=== PATIENT | female | born 1930 | race Caucasian/White ===

== ENCOUNTER 2019-04-25 14:56 | Inpatient (IN) ==
[2019-04-25] MEDS ORDERED: ONDANSETRON 4 MG/2 ML VIAL ONE (15:13)
[2019-04-25] MEDS ORDERED: fentaNYL 100 MCG/2 ML VIAL ONE (15:14)
[2019-04-25] MEDS ORDERED: fentaNYL 100 MCG/2 ML VIAL IV STA (15:19)
[2019-04-25] MEDS ORDERED: ONDANSETRON 4 MG/2 ML VIAL IV STA (15:19)
[2019-04-25 16:00] LABS: Basophils # 0.1 10*3/uL (0.0-0.2); Basophils % 0.8 % (0.0-0.8); Eosinophils # 0.1 10*3/uL (0.0-0.87); Eosinophils % 0.7 % (0.00-10.9); Hematocrit 37.8 VOL% (35.7-47.0); Hemoglobin 12.6 GM/DL (12.0-16.0); Immature Granulocytes Absolute 0.17 #; Lymphocytes # 1.1 10*3/uL (1.4-4.0); Lymphocytes % 6.2 % (21.3-54.2); Mean Corpuscular HGB Conc 33.3 GM/DL (32-36); Mean Corpuscular Volume 90.6 FL (87-102); Mean Platelet Volume 11.1 FL (9.6-12.0); Monocytes % 7.6 % (1.7-12.7); Neutrophils % 83.7 % (38.7-73.9); Platelet Count 305 T/CUMM (130-400); Red Blood Count 4.17 MC/CUMM (3.8-5.5); Red Cell Distribution Width 13.7 % (9.3-17.3); White Blood Count 17.1 T/CUMM (4-12)
[2019-04-25 16:10] LABS: INR 0.9; PT Patient Result 10.3 SECS (9.6-12.2)
[2019-04-25 16:11] LABS: Apearance,Urine CLEAR (Clear); Bilirubin,Urine Negative (Negative); Blood, Urine Negative (Negative); Glucose,Urine (UA) Negative (Negative); Hyaline Casts,Urine 14 /LPF (0-3); Ketones,Urine Negative (Negative); Mucus,Urine Occasional /LPF (Occasional); Nitrite,Urine Negative (Negative); Protein,Urine Negative; RBC,Urine 1 /HPF (0-4); Squamous Epithelial Cell,Urine Occasional /HPF (0-10); Urine Color Yellow (Yellow); Urine Specific Gravity 1.008 (1.001-1.035); Urine Urobilinogen < 2.0 EU/DL (0.2-1.0)
[2019-04-25 16:28] LABS: Alanine Aminotransferase 18 U/L (13-56); Albumin 3.4 G/DL (3.4-5.0); Alkaline Phosphatase 118 U/L (45-117); Aspartate Amino Transferase 24 U/L (0-37); Blood Urea Nitrogen 51 MG/DL (7-18); Calcium 9.8 MG/DL (8.5-10.1); Glucose 239 MG/DL (74-106); Osmolality,Calculated 283.7 MOS/KG (273-304); Total Protein 7.5 G/DL (6.4-8.3); Troponin I < 0.015 NG/ML (0.00-0.045)
[2019-04-25] MEDS ORDERED: ONDANSETRON 4 MG/2 ML VIAL IV PRN (16:38)
[2019-04-25] MEDS ORDERED: DEXTROSE 10% 25 GM/250 ML BAG IV PRN (16:38)
[2019-04-25] MEDS ORDERED: ACETAMINOPHEN 325 MG TABLET PO PRN (16:38)
[2019-04-25] MEDS ORDERED: GLUCAGON 1 MG VIAL IM PRN (16:38)
[2019-04-25] MEDS: SODIUM CHLORIDE 0.9% 1,000 ML IV SCH (17:49)
[2019-04-25] MEDS: MORPHINE 4 MG/1 ML VIAL IV PRN (20:02)
[2019-04-25] MEDS: traZODone 50 MG TABLET PO SCH (21:26)
[2019-04-25] MEDS: INSULIN LISPRO 100 UNIT/ML SUBCUT SCH (21:30)
[2019-04-26] MEDS: MORPHINE 4 MG/1 ML VIAL IV PRN (03:55)
[2019-04-26] MEDS: SODIUM CHLORIDE 0.9% 1,000 ML IV SCH (03:55)
[2019-04-26 05:39] LABS: Basophils # 0.1 10*3/uL (0.0-0.2); Basophils % 0.6 % (0.0-0.8); Eosinophils # 0.1 10*3/uL (0.0-0.87); Hematocrit 32.9 VOL% (35.7-47.0); Immature Granulocytes % 0.6 %; Immature Granulocytes Absolute 0.07 #; Lymphocytes # 1.2 10*3/uL (1.4-4.0); Lymphocytes % 10.1 % (21.3-54.2); Mean Corpuscular HGB Conc 33.4 GM/DL (32-36); Mean Corpuscular Volume 91.4 FL (87-102); Mean Platelet Volume 11.9 FL (9.6-12.0); Monocytes % 11.4 % (1.7-12.7); Neutrophils % 76.3 % (38.7-73.9); Platelet Count 256 T/CUMM (130-400); Red Cell Distribution Width 13.6 % (9.3-17.3); White Blood Count 12.1 T/CUMM (4-12)
[2019-04-26] MEDS: LEVOTHYROXINE 100 MCG TABLET PO SCH (06:10)
[2019-04-26 06:21] LABS: Albumin 2.8 G/DL (3.4-5.0); Bilirubin,Total 1.1 MG/DL (0.2-1.0); Calcium 9.2 MG/DL (8.5-10.1); Osmolality,Calculated 284.8 MOS/KG (273-304); Risk Ratio 1.96; Thyroid Stimulating Hormone 0.614 uIU/ml (0.358-3.74); Total Protein 6.3 G/DL (6.4-8.3)
[2019-04-26] MEDS: INSULIN LISPRO 100 UNIT/ML SUBCUT SCH ×4 (07:37→22:47)
[2019-04-26] MEDS: SPIRONOLACTONE 50 MG TABLET PO SCH (08:51)
[2019-04-26] MEDS: ASPIRIN EC 81 MG TABLET PO SCH (08:52)
[2019-04-26] MEDS: SERTRALINE 25 MG TABLET PO SCH (08:52)
[2019-04-26] MEDS: PANTOPRAZOLE 40 MG TABLET PO SCH (08:52)
[2019-04-26] MEDS: ALLOPURINOL 100 MG TABLET PO SCH (08:52)
[2019-04-26] MEDS: amLODIPine 5 MG TABLET PO SCH (08:52)
[2019-04-26] MEDS ORDERED: ceFAZolin 1,000 MG VIAL ONE (10:39)
[2019-04-26] MEDS ORDERED: MORPHINE 4 MG/1 ML VIAL IV PRN ×2 (12:04)
[2019-04-26] MEDS ORDERED: MAGNESIUM HYDROXIDE SUSP 30 ML UDCUP PO PRN (12:04)
[2019-04-26] MEDS ORDERED: BUPIVACAINE SPINAL 0.75% 2 ML AMP SPINAL ONE (12:28)
[2019-04-26] MEDS ORDERED: SEVOFLURANE 1 UNIT/15 MINUTE INH ONE (12:28)
[2019-04-26] MEDS ORDERED: PROPOFOL 200 MG/20 ML VIAL IV ONE (12:28)
[2019-04-26] MEDS ORDERED: LIDOCAINE 100 MG/5 ML SYRINGE ONE (12:28)
[2019-04-26] MEDS ORDERED: ONDANSETRON 4 MG/2 ML VIAL ONE (12:29)
[2019-04-26] MEDS ORDERED: PHENYLEPHRINE 1 MG/10 ML SYRINGE IV ONE (12:29)
[2019-04-26] MEDS ORDERED: GLYCOPYRROLATE 0.4 MG/2 ML VIAL ONE (12:29)
[2019-04-26] MEDS ORDERED: MIDAZOLAM 2 MG/2 ML VIAL ONE (12:29)
[2019-04-26] MEDS ORDERED: fentaNYL 100 MCG/2 ML VIAL ONE (12:29)
[2019-04-26] MEDS ORDERED: ACETAMINOPHEN 1,000 MG/100 ML VIAL IV ONE (12:29)
[2019-04-26] MEDS ORDERED: DEXAMETHASONE 4 MG/1 ML VIAL ONE (12:29)
[2019-04-26] MEDS ORDERED: ROCURONIUM 100 MG/10 ML VIAL IV ONE (12:30)
[2019-04-26] MEDS ORDERED: LACTATED RINGERS 1,000 ML IV ONE (12:30)
[2019-04-26] MEDS ORDERED: SUCCINYLCHOLINE 200 MG/10 ML VIAL ONE (12:30)
[2019-04-26] MEDS ORDERED: NEOSTIGMINE 10 MG/10 ML VIAL ONE (12:30)
[2019-04-26] MEDS: LACTATED RINGERS 1,000 ML IV SCH (14:48)
[2019-04-26] MEDS: ceFAZolin 1,000 MG in SYRINGE 1 EACH IV SCH (16:50)
[2019-04-26] MEDS: DOCUSATE SODIUM 100 MG CAPSULE PO SCH (20:13)
[2019-04-26] MEDS: traZODone 50 MG TABLET PO SCH (20:13)
[2019-04-27] MEDS: ceFAZolin 1,000 MG in SYRINGE 1 EACH IV SCH (00:06)
[2019-04-27] MEDS: LACTATED RINGERS 1,000 ML IV SCH (00:11)
[2019-04-27 05:35] LABS: Basophils % 0.1 % (0.0-0.8); Hematocrit 30.4 VOL% (35.7-47.0); Hemoglobin 9.9 GM/DL (12.0-16.0); Immature Granulocytes % 0.7 %; Lymphocytes # 0.7 10*3/uL (1.4-4.0); Lymphocytes % 5.3 % (21.3-54.2); Mean Corpuscular HGB Conc 32.6 GM/DL (32-36); Mean Platelet Volume 12.2 FL (9.6-12.0); Monocytes % 6.8 % (1.7-12.7); Neutrophils % 87.1 % (38.7-73.9); Platelet Count 233 T/CUMM (130-400); Red Blood Count 3.27 MC/CUMM (3.8-5.5); Red Cell Distribution Width 13.4 % (9.3-17.3); White Blood Count 13.8 T/CUMM (4-12)
[2019-04-27 05:58] LABS: Calcium 9.4 MG/DL (8.5-10.1); Osmolality,Calculated 287.8 MOS/KG (273-304)
[2019-04-27 06:00] LABS: Albumin 2.5 G/DL (3.4-5.0); Bilirubin,Total 0.6 MG/DL (0.2-1.0); Calcium 9.4 MG/DL (8.5-10.1); Osmolality,Calculated 290.7 MOS/KG (273-304); Total Protein 6.1 G/DL (6.4-8.3)
[2019-04-27] MEDS: LEVOTHYROXINE 100 MCG TABLET PO SCH (06:01)
[2019-04-27] MEDS: ENOXAPARIN 30 MG/0.3 ML SYRINGE SUBCUT SCH (06:01)
[2019-04-27] MEDS ORDERED: FONDAPARINUX 2.5 MG/0.5 ML SYRINGE SUBCUT SCH (06:05)
[2019-04-27] MEDS: ALLOPURINOL 100 MG TABLET PO SCH (08:58)
[2019-04-27] MEDS: amLODIPine 5 MG TABLET PO SCH (08:58)
[2019-04-27] MEDS: SERTRALINE 25 MG TABLET PO SCH (08:58)
[2019-04-27] MEDS: DOCUSATE SODIUM 100 MG CAPSULE PO SCH ×2 (08:58→21:06)
[2019-04-27] MEDS: SPIRONOLACTONE 50 MG TABLET PO SCH (08:59)
[2019-04-27] MEDS: INSULIN LISPRO 100 UNIT/ML SUBCUT SCH ×4 (08:59→21:05)
[2019-04-27] MEDS: ASPIRIN EC 81 MG TABLET PO SCH (08:59)
[2019-04-27] MEDS: PANTOPRAZOLE 40 MG TABLET PO SCH (08:59)
[2019-04-27] MEDS: traZODone 50 MG TABLET PO SCH (21:06)
[2019-04-28 04:52] LABS: Basophils % 0.2 % (0.0-0.8); Eosinophils % 0.1 % (0.00-10.9); Hematocrit 27.7 VOL% (35.7-47.0); Immature Granulocytes % 0.8 %; Immature Granulocytes Absolute 0.12 #; Lymphocytes # 0.8 10*3/uL (1.4-4.0); Lymphocytes % 5.3 % (21.3-54.2); Mean Corpuscular HGB Conc 32.5 GM/DL (32-36); Mean Corpuscular Volume 93.3 FL (87-102); Mean Platelet Volume 11.7 FL (9.6-12.0); Monocytes % 7.6 % (1.7-12.7); Platelet Count 240 T/CUMM (130-400); Red Blood Count 2.97 MC/CUMM (3.8-5.5); Red Cell Distribution Width 13.6 % (9.3-17.3); White Blood Count 15.2 T/CUMM (4-12)
[2019-04-28 05:42] LABS: Albumin 2.5 G/DL (3.4-5.0); Bilirubin,Total 0.6 MG/DL (0.2-1.0); Calcium 9.4 MG/DL (8.5-10.1); Osmolality,Calculated 295.5 MOS/KG (273-304); Total Protein 5.8 G/DL (6.4-8.3)
[2019-04-28] MEDS: ENOXAPARIN 30 MG/0.3 ML SYRINGE SUBCUT SCH (06:05)
[2019-04-28] MEDS: LEVOTHYROXINE 100 MCG TABLET PO SCH (06:06)
[2019-04-28 07:57] VITALS: BP 128/80
[2019-04-28] MEDS: INSULIN LISPRO 100 UNIT/ML SUBCUT SCH ×2 (08:30→11:46)
[2019-04-28] MEDS: ALLOPURINOL 100 MG TABLET PO SCH (08:32)
[2019-04-28] MEDS: PANTOPRAZOLE 40 MG TABLET PO SCH (08:32)
[2019-04-28] MEDS: ASPIRIN EC 81 MG TABLET PO SCH (08:32)
[2019-04-28] MEDS: DOCUSATE SODIUM 100 MG CAPSULE PO SCH (08:33)
[2019-04-28] MEDS: amLODIPine 5 MG TABLET PO SCH (08:33)
[2019-04-28] MEDS: SERTRALINE 25 MG TABLET PO SCH (08:33)
[2019-04-28] MEDS: SPIRONOLACTONE 50 MG TABLET PO SCH (08:33)
== END 2019-04-28 12:30 | DRG 481 ==
LOC: EDUNIT# → EDBD → N.ED 14:56 → N.EDINP 16:38 → N.3E 17:42
PROVIDERS: ADMIT Internal Medicine; ATTEND Internal Medicine